=== PATIENT | female | born 1995 ===

== ENCOUNTER 2018-07-30 23:53 | Emergency (ER) | payer OTHER ==
[~2018-07-30] VITALS: Ht 165.1 cm; Wt 54.0 kg
[2018-07-31] MEDS ORDERED: XOPENEX0.63 MG/3 IH (03:41)
[2018-07-31] MEDS ORDERED: ZYNCOF 20-400120 ML PO (03:41)
[2018-07-31] MEDS ORDERED: ZITHROMAX500 MG PO (03:41)
[2018-07-31] MEDS ORDERED: PREDNISONE10 MG PO (03:41)
== END 2018-07-31 03:57 ==
LOC: ER 23:53
DX: J20.8 Acute bronchitis due to other specified organisms (principal)

== ENCOUNTER → 2018-07-30 | Emergency (ER) | payer OTHER ==
[~2018-07-30] VITALS: Ht 165.1 cm; Wt 54.0 kg
[~2018-07-30] MED LIST: PREDNISONE10 MG PO; XOPENEX0.63 MG/3 IH; ZITHROMAX500 MG PO; ZYNCOF 20-400120 ML PO
== END | disposition home or self-care (01) ==
LOC: ER 00:52
DX: J20.8 Acute bronchitis due to other specified organisms (principal)